=== PATIENT | female | born 1945 | race Caucasian/White ===

== ENCOUNTER → 2016-04-18 | Outpatient (CLI) | payer BC ==
[~2016-04-18] MED LIST: CITA40TA4 PO; FEXO1TAB49 PO; LEVO100T7 PO; MTR600X; ROSU5TAB PO
[2016-04-18 09:42] LABS: BASO % 0.6 %; BASO ABS # 0.05 K/uL (0-0.2); COMPLETE YES; EOS % 3.2 %; HEMATOCRIT 43.9 % (37-47); IG% 0.1 %; LYMPH % 26.2 %; LYMPH ABS # 2.12 K/uL (1.2-3.4); MEAN CELL VOLUME 90.3 fL (80-100); MEAN CORPUSCULAR HEMOGLOBIN 30.2 pg (25-34); MEAN CORPUSCULAR HGB CONC 33.5 g/dl (32-36); MEAN PLATELET VOLUME 10.6 fL (7.4-10.4); MONO % 6.6 %; NEUT % 63.3 %; PLATELET COUNT 310 K/uL (130-400); RED BLOOD COUNT 4.86 M/uL (4.2-5.4); WHITE BLOOD COUNT 8.08 K/uL (4.8-10.8)
[2016-04-18 10:01] LABS: ALT/SGPT 23 U/L (12-78); BLOOD UREA NITROGEN 16 mg/dl (7-18); CALCIUM 9.3 mg/dl (8.5-10.1); CARBON DIOXIDE 24 mmol/L (21-32); CHLORIDE 108 mmol/L (98-107); CHOLESTEROL 260 mg/dl (0-200); CREATININE 0.74 mg/dl (0.60-1.20); GLUCOSE 116 mg/dl (70-99); SODIUM 143 mmol/L (136-145); TRIGLYCERIDES 174 mg/dl (0-150); VERY LOW DENSITY LIPOPROT CALC 35 mg/dl
[2016-04-18 10:13] LABS: ALB/GLOB RATIO 1.3 (0.9-2); ALKALINE PHOSPHATASE 73 U/L (45-117); AST/SGOT 14 U/L (15-37); CHOLESTEROL/HDL RATIO 4.6; HDL CHOLESTEROL 57 mg/dl; LDL CHOLESTEROL CALCULATED 168 mg/dl
== END | disposition home or self-care (01) ==
LOC: C.LAB1850 08:39
PROVIDERS: ATTEND Internal Medicine Pulmonary Disease
DX: E78.5 Hyperlipidemia, unspecified (principal); E03.9 Hypothyroidism, unspecified; J30.81 Allergic rhinitis due to animal (cat) (dog) hair and dander; M54.5 Low back pain

== ENCOUNTER → 2016-09-12 | Outpatient (CLI) | payer BC ==
--- NOTE | 2016-09-12 14:55 | MAMMOGRAPHY REPORT ---
BILATERAL DIGITAL SCREENING MAMMOGRAM WITH CAD: 09/12/2016 CLINICAL HISTORY: Routine screening examination. TECHNIQUE: Bilateral CC and MLO views were obtained. Current study was also evaluated with a Comput er Aided Detection (CAD) system. COMPARISON: Comparison is made to exams dated: 09/09/2015 mammogram, 09/03/2014 mammogram, 09/02/2013 ma mmogram, 08/30/2012 mammogram, 08/30/2011 mammogram, and 08/26/2010 mammogram - [facility] BREAST COMPOSITION: There are scattered areas of fibroglandular density in both breasts. FINDINGS: There are stable groupings of benign-appearing microcalcifications throughout each breast. No new suspicious mass, architectural distortion or cluster of suspicious microcalcifications is see n. IMPRESSION: ACR BI-RADS CATEGORY 1: NEGATIVE There is no mammographic evidence of malignancy. A 1 year screening mammogram is recommended. The pa tient will receive written notification of the results. Approximately 10% of breast cancers are not detected with mammography. A negative mammographic report should not delay biopsy if a clinically suggestive mass is present. Shelli Richardson M.D. ay/:09/12/2016 11:43:49 Forestry Engineer: Ivette OAKES(Lachelle)(Lori), [facility] letter sent: Normal 1/2 BI-RADS Code: ACR BI-RADS Category 1: Negative
== END | disposition home or self-care (01) ==
LOC: C.MAMM 10:59
PROVIDERS: ATTEND Obstetrics & Gynecology
DX: Z12.31 Encounter for screening mammogram for malignant neoplasm of breast (principal)

== ENCOUNTER → 2017-02-20 | Outpatient (CLI) | payer BC ==
[2017-02-20 09:54] LABS: ALT/SGPT 20 U/L (12-78); BLOOD UREA NITROGEN 16 mg/dl (7-18); BUN/CREATININE RATIO 20.1 (10-20); CALCIUM 9.2 mg/dl (8.5-10.1); CARBON DIOXIDE 27 mmol/L (21-32); CHLORIDE 104 mmol/L (98-107); CHOLESTEROL 170 mg/dl (0-200); CREATININE 0.78 mg/dl (0.60-1.20); GLUCOSE 113 mg/dl (70-99); POTASSIUM 4.1 mmol/L (3.5-5.1); SODIUM 139 mmol/L (136-145); TRIGLYCERIDES 115 mg/dl (0-150); VERY LOW DENSITY LIPOPROT CALC 23 mg/dl
[2017-02-20 10:04] LABS: ALKALINE PHOSPHATASE 79 U/L (45-117); AST/SGOT 16 U/L (15-37); CHOLESTEROL/HDL RATIO 2.7; HDL CHOLESTEROL 63 mg/dl; LDL CHOLESTEROL CALCULATED 84 mg/dl
== END | disposition home or self-care (01) ==
LOC: C.LAB1850 08:37
PROVIDERS: ATTEND Internal Medicine Pulmonary Disease
DX: E78.5 Hyperlipidemia, unspecified (principal); E03.9 Hypothyroidism, unspecified; M54.30 Sciatica, unspecified side; F32.9 Major depressive disorder, single episode, unspecified

== ENCOUNTER 2022-04-05 10:33 | Observation (INO) ==
--- NOTE | 2022-02-15 12:10 | PAT Medication Instructions ---
Medication Instructions Date of Service February 15, 2022 Home Medications Medication Instructions Recorded citalopram 10 mg tablet 10 mg PO QPM #90 tabs 03/03/21 levothyroxine 100 mcg tablet 100 mcg PO QAM #90 tabs 03/03/21 (Levo-T) rosuvastatin 5 mg tablet 5 mg PO QPM #90 tabs 06/07/21 fexofenadine 180 mg tablet ([facility]) 180 mg PO DAILY PRN citalopram 10 mg tablet 10 mg PO QPM levothyroxine 100 mcg tablet (Levo-T) 100 mcg PO QAM rosuvastatin 5 mg tablet 5 mg PO QPM DO NOT take the morning of surgery fexofenadine 180 mg tablet ([facility]) 180 mg PO DAILY PRN Take morning of surgery With a small sip of water, OTHERWISE NOTHING TO EAT OR DRINK AFTER MIDNIGHT: levothyroxine 100 mcg tablet (Levo-T) 100 mcg PO QAM Take evening before surgery citalopram 10 mg tablet 10 mg PO QPM rosuvastatin 5 mg tablet 5 mg PO QPM Other Notes If you have any questions please call us at [phone] or [phone] or [phone] or [phone]
--- NOTE | 2022-02-21 14:56 | Anesthesiology Consultation ---
Date of Service February 21, 2022 Assessment & Plan (1) Encounter for pre-operative examination: Chart Review Chart Review: Acceptable Risk for Surgery (pending surgeon ordered PCP clearance ) and Patient seen in Pre Admission Testing - Awaiting surgeon ordered PCP clearance 03/02/22 - Due to age, patient is NOT a Same Day Joint candidate Per PAT appt on 02/21/22, patient denies any recent travel or large group activities. Pt is vaccinated for Covid. Will leave to surgeon's discretion if preop Covid testing needed. Educated on importance of using Covid precautions one week prior to surgery Teaching & Discussion Pre-Anesthesia Teaching/Discussion Notes: Instructed NPO after midnight before surgery,except medications with 15 cc of water. Medication instructions provided according to the PAT guidelines. History Surgery Operation Date: 04/05/22 09:20 Proposed Procedures p Left Total Knee Arthroplasty - Anders Gold DO Height/Weight Height: 5 ft 7 in Weight: 84.9 kg Allergies Allergy/AdvReac Type Severity Reaction Status Date / Time cat dander Allergy Mild Congested Verified 02/21/22 14:45 dog dander Allergy Mild Congested Verified 02/21/22 14:45 Medications Home Medications Medication Instructions Recorded Confirmed Last Taken fexofenadine 180 mg tablet 180 mg PO DAILY PRN allergy relief 10/04/18 02/10/22 10/21/18 08:00 ([facility]) citalopram 10 mg tablet 10 mg PO QPM #90 tabs 03/03/21 02/10/22 Unknown levothyroxine 100 mcg tablet 100 mcg PO QAM #90 tabs 03/03/21 02/10/22 Unknown (Levo-T) rosuvastatin 5 mg tablet 5 mg PO QPM #90 tabs 06/07/21 02/10/22 Unknown Past Medical History Medical History Arthritis Elevated cholesterol Hypothyroidism Situational depression Exercise / Class Metabolic Activity II 4-5 Yardwork/Stairs/Walk up hill (one flight of stiars - no chest pain or SOB ) Past Family History Family History Son Liver cancer Other No family history of adverse response to anesthesia Past Surgical History Surgical History H/O breast biopsy BENIGN History of arthroscopy of right knee Meniscus surgery History of cataract surgery (~2012) rt/left History of colonoscopy (~09/2018) History of tonsillectomy History of tooth extraction [place] teeth removed Past Anesthesia History No Hx of Anesthesia Complications and No Family Hx of Anesthesia Complications History of PONV No Hx of PONV and No Hx of Motion Sickness Social History Smoking Status: Former smoker tobacco type: cigarettes Do You Dip or Chew Tobacco: No Smoking End Date: 20 YEARS AGO Hx Alcohol Use: Yes Alcohol type: wine alcohol intake frequency: holidays/special occasions only Hx Substance Use: No substance use type: does not use Review of Systems Occ reflux - only with red wine Occ snoring- mild - no witnessed apnea - no hx of sleep study Patient denies chest pain, shortness of breath, dyspnea on exertion, cough, wheezing, palpitations. No hx of seizures, stroke, PA. No hx of blood clots or blood transfusions Physical Exam Vital Signs VITALS BP 125/66 P 62 TEMP 98.2 SP02 96% RESP 16 Constitutional no acute distress ENMT Mouth: + small oral opening; no TMJ clicking Thyromental Distance: > or= 3.5 Finger Breadths (3.5) Mallampati Class: III Missing molars Crowns to molars Neck + limited neck extension (mild) Respiratory normal respiratory effort; no respiratory distress Auscultation: lungs clear to auscultation bilaterally; no wheezes Cardiovascular Rate/Rhythm: regular rate and regular rhythm Heart Sounds: no murmur Vessels: no carotid bruit Musculoskeletal Spine: no pain with cervical ROM Extremities: extremities normal to inspection Psychiatric Orientation: alert Lab Results Anesthesia Preop Results Results Anesthesia Widget: WBC 9.03 K/ul (4.8-10.8) 02/21/22 Hgb 14.7 g/dl (12.0-16.0) 02/21/22 Hct 44.3 % (34.1-44.9) 02/21/22 Plt 278 K/uL (130-400) 02/21/22 Na 140 mmol/L (136-145) 02/21/22 K 4.5 mmol/L (3.5-5.1) 02/21/22 Cl 106 mmol/L (98-107) 02/21/22 CO2 28 mmol/L (21-32) 02/21/22 BUN 17 mg/dl (6-23) 02/21/22 Creat 0.73 mg/dl (0.6-1.2) 02/21/22 Glucose Level 92 mg/dl (70-99(Fasting)) 02/21/22 PT 10.6 Seconds (9.0-12.0) 02/21/22 PTT 24.2 Seconds (21.0-31.0) 02/21/22 INR 1.0 (0.9-1.1) 02/21/22 HA1c 5.6 % (4.5-5.6) 02/21/22 Urine Color Yellow 02/21/22 Urine Appearance Clear (Clear) 02/21/22 Urine pH 5.5 (4.5-7.5) 02/21/22 Urine Specific [place] 1.015 (1.000-1.030) 02/21/22 Urine Protein Negative (Negative) 02/21/22 Urine Glucose (UA) Negative (Negative) 02/21/22 Urine Ketones Negative (Negative) 02/21/22 Urine Blood Negative (Negative) 02/21/22 Urine Nitrite Negative (Negative) 02/21/22 Urine Bilirubin Negative (Negative) 02/21/22 Urine Urobilinogen Negative (Negative) 02/21/22 Urine Leukocyte Esterase Negative (Negative) 02/21/22 Blood Type A Positive 02/21/22 Antibody Screen NEGATIVE 02/21/22 Testing Electrocardiogram Date: 02/21/22 Findings: + SB @ (57bpm ) Otherwise normal EKG per cardio. Chest X-Ray Date: 02/21/22 FINDINGS: Lung volumes are normal. Lungs are clear. There is no pneumothorax or pleural effusion. Cardiac size is normal. There is a suspected hiatal hernia. There is no evidence for pulmonary edema. IMPRESSION: 1. No acute cardiopulmonary findings. 2. Suspected hiatal hernia. COVID-19 Risk Screen Screening Information COVID-19 Screen Date: 02/21/22 Exposure 21 Days Family/Household +COVID Last 21 Days: No Exposure 10 Days Any COVID Exposure Last 10 Days: No Symptoms Last 10 Days Experienced COVID Sx Last 10 Days: No + COVID 0-90 Days COVID + in Last 0-90 Days: No Risk Plan COVID Risk Plan: No Risk Identified Patient Education COVID Preop Screening Education Complete: Yes
--- NOTE | 2022-03-11 11:52 | History & Physical Report ---
Date of Service March 11, 2022 date of surgery: 04/05/22 Procedure: Left Total Knee Arthroplasty Surgeon: Anders Gold Assessment & Plan (1) Arthritis of knee, left: Plan: Risks and benefits of procedure discussed in detail today, patient would like to proceed with a left total knee replacement at [facility] as scheduled. will obtain medical clearance prior to surgery as well as obtain PATs at [facility]. Will place on ASA 81mg po bid x 1 month post op, f/u 2 weeks post op for routine post-operative care and x-ray, sooner if having any problems. will make arrangements for HHPT at the time of discharge. At this point in time, has failed conservative measures and would like to proceed with surgical intervention. The risks and benefits have been discussed including, but not limited to, risk of infection, nerve injury, stiffness, loss of motion, failure to improve, etc. Reasonable outcomes and options of treatment were discussed. An explanation of appropriate alternatives to the procedure that may be advantageous were discussed and their risks and benefits, as well as the risks and benefits of not proceeding with treatment. I offered to answer any additional inquiries concerning the treatment involved. All the patient's questions were answered. The patient is agreeable, understanding of the treatment plan and alternatives, and wishes to proceed with the treatment plan. History of Present Illness Chief Complaint: left knee pain Primary Care Provider: James Villarreal MD Estee is a 76-year-old female who presents for preop evaluation prior to a left total knee replacement. She has pain in his knee for many years now which is gradually worsened and is now affecting her daily activities including walking standing using stairs. She is tried oral anti-inflammatories as well as Tylenol without relief. She had previous cortisone injection as well as viscosupplementation as well. This point time is failed conservative measures and would like to proceed with a left total knee replacement Allergies Allergy/AdvReac Type Severity Reaction Status Date / Time cat dander Allergy Mild Congested Verified 03/02/22 12:55 dog dander Allergy Mild Congested Verified 03/02/22 12:55 Home Medications Medication Instructions Recorded Confirmed Type fexofenadine 180 mg tablet 180 mg PO DAILY PRN allergy relief 10/04/18 03/02/22 History ([facility]) citalopram 10 mg tablet 10 mg PO QPM #90 tabs 12/08/21 12/07/22 Rx rosuvastatin 5 mg tablet 5 mg PO QPM #90 tabs 06/07/21 03/02/22 Rx levothyroxine 100 mcg tablet See Rx Instructions .Route 02/28/22 03/02/22 Rx .COMPLEX #90 tabs Past Med/Surg History Medical History Arthritis Elevated cholesterol Hyperglycemia Per PCP records Hypothyroidism Situational depression Surgical History H/O breast biopsy BENIGN History of arthroscopy of right knee Meniscus surgery History of cataract surgery (~2012) rt/left History of colonoscopy (~09/2018) History of tonsillectomy History of tooth extraction [place] teeth removed Family History Son Liver cancer Other No family history of adverse response to anesthesia Social History Smoking Status: Former smoker Second Hand Exposure: Yes (SOME EXPOSURE IN PAST); Hx Alcohol Use: Yes Alcohol type: wine Hx Substance Use: No Preferred Language: [place] Communication Ability: Effective Validation Scientist Required: No Beliefs That Will Affect Care: None marital status: Current Living Situation: Spouse current occupational status: retired Feels Safe at Home: Yes Assistive Devices: Glasses Review of Systems Review of Systems: All systems reviewed & are unremarkable except as noted in HPI & below Constitutional: no fever, no chills and no sweats Respiratory: no cough and no dyspnea Cardiovascular: no chest pain, no dyspnea and no orthopnea Gastrointestinal: no abdominal pain, no nausea and no vomiting Musculoskeletal: as per Subjective / HPI Physical Exam Physical Exam: HT: 5ft 7in WT: 84.8kg Constitutional: WD/WN, vitals as above no acute distress Respiratory: normal respiratory effort, lungs clear to auscultation no respiratory distress, no labored breathing and does not use accessory muscles Cardiovascular: RRR, no murmur, no edema Gastrointestinal (Abdomen): normal bowel sounds, soft, nontender, no hepatosplenomegaly Musculoskeletal: Knee: + knee abnormal to inspection (Left knee: ), + effusion (+1 effusion), + limited ROM of knee (ROM 0/3/110), + knee ROM with crepitation, + joint line tenderness (medial joint line) and + Edgar's sign positive; no deformity, no skin erythema, no ecchymosis, no valgus laxity, no varus laxity, anterior drawer test negative, Jeremi's sign negative and pivot shift test negative Results & Data Results & Data ([facility]) Diagnostic Findings Left Knee X-ray: left knee series confirm degenerative changes to the left knee, greatest medial compartments and patellofemoral joint, showing joint space narrowing, osteophyte formation and subchondral sclerosis. no acute bony pathology noted.
[~2022-04-05 10:33] MED LIST changes: +ACETAMINOPHEN 500 MG TAB PO SCH; +BUPIVACAINE 0.25% 30 ML VIAL ONE; +BUPIVACAINE 0.5 % 5 MG/1 ML PF 10ML VIAL ONE; -CITA40TA4 PO; +CeleBREX 200 MG CAP PO SCH; +DEXAMETHASONE SOD INJ 4 MG/ML VIAL ONE; +EPINEPHrine INJ 1 MG/ML AMP ONE; +FAMOTIDINE 20 MG TAB PO SCH; -FEXO1TAB49 PO; +GABAPENTIN 300 MG CAP PO SCH; -LEVO100T7 PO; +LR 500ML BOLUS, THEN 15ML/HR IV SCH; +METOCLOPRAMIDE HCL 10 MG TABLET PO SCH; -MTR600X; +ROPIVACAINE 0.5% HCL/PF 150 MG, BUPIVACAINE 0.75% MPF 20 ML, EPINEPHrine 30MG/30ML (OR ... INSTIL SCH; -ROSU5TAB PO; +TRANEXAMIC ACID 1,000 MG **IV Intra-op IV SCH; +TRANEXAMIC ACID 1,000 MG **IV Pre-op IV SCH; +ceFAZolin 2000MG 2,000 MG/15 ML SYR IV SCH; +dexAMETHasone 4 MG TAB PO SCH
--- NOTE | 2022-04-05 11:19 | History & Physical Bridge Note ---
Date of Service April 05, 2022 History & Physical Bridge Note I have examined the patient, reviewed the History & Physical and in the interval since the performance of the History & Physical I have noted the following changes of clinical significance: no changes noted
[2022-04-05] MEDS ORDERED: LIDOCAINE 2% 20 MG/ML 5 ML SYR IV ONE (12:14)
[2022-04-05] MEDS ORDERED: PROPOFOL IV EMULSION 10 MG/ML 20 ML VIAL IV ONE (12:14)
[2022-04-05] MEDS ORDERED: fentaNYL citrate 100 MCG/2 ML VIAL ONE (12:14)
[2022-04-05] MEDS ORDERED: ONDANSETRON INJ 2 MG/ML 2 ML VIAL ONE (12:14)
[2022-04-05] MEDS ORDERED: MIDAZOLAM HCL 1 MG/ML 2ML VIAL ONE ×2 (12:15→13:28)
[2022-04-05] MEDS ORDERED: ORTHO JOINT ANESTHETIC ONE (13:14)
--- NOTE | 2022-04-05 14:40 | Operative Report ---
Post Operative Report Pre & Post Diagnosis Operation Date: 04/05/22 13:00 Pre-Op Diagnosis: Tricompartment Osteoarthritis of the Left Knee Post-Op Diagnosis: Tricompartment Osteoarthritis of the Left Knee I identified the patient and participated in the time-out.: Yes Procedure Operation Date: 04/05/22 13:00 Actual Procedures p Left Total Knee Arthroplasty(Left) utilizing Laureano [employer] Nephew journey 2 patient matched total knee arthroplasty size femur 5 tibia for polyeleven patella 29- Anders Gold DO Surgeon Anders Gold DO French Professor Edd OLMOS Estimated Blood Loss 5 Findings Consistent with Post-Op Diagnosis Patient resents severe end-stage tricompartmental DJD no response to conservative management patient has eburnated [id number] marginal osteophyte subchondral cystic changes. Specimens Bone and cartilage Drains Medium bore Hemovac Anesthesia Type MAC Spinal Regional Complications none Disposition Accompanied Patient To Recovery: No Disposition: Recovery Room Indications Patient Dionte with severe end-stage DJD failed attempted conservative management clinic physical therapy anti-inflammatories relative rest activity modification corticosteroid injection viscosupplementation Description of Procedure After proper prepping and draping of the left lower extremity anterior midline incision was made over the region of the extensor extensor mechanism after meticulous hemostasis was obtained and maintained in subcutaneous tissues a medial parapatellar incision was made The patella was subluxed lateralward the medial lateral gutter were cleaned from any hypertrophic synovitis and scar tissue of the distal femoral block was placed and the distal femoral osteotomy cut was made subsequently the chamfers anterior and posterior osteotomy cuts were made utilizing the 4-in-1 block the tibia was subsequently subluxed anteriorward medial and ateral meniscal remnants were excised in their entirety remnants of the anterior and posterior cruciate ligaments were excised in their entirety excellent exposure of the proximal tibia was obtained the tibial oste otomy guide was placed on the proximal tibial osteotomy cut was made once again the knee was irrigated with copious amounts of sterile saline solution the patella was subsequently everted lateralward thickened scar tissue around the patella was removed the patella was subsequently cut utilizing a freehand technique and was drilled prepared for final preparation and placement of patella socially flexion-extension gaps were checked and the equal and symmetric trials were placed to the appropriate femoral and tibial trials with poly-spacer being placed for equal flexion and extension gaps and full range of motion including extension to 0 and flexion to 140 the trial components after having been taken to recovery range of motion was subsequently removed meticulous hemostasis was obtained and maintained subsequently a knee block injection of joint cocktail including ropivacaine 0.5% 150 mg. Bupivacaine 0.5% epinephrine 1-200,030 mL's toradol 30 mg dexamethasone 4 mg ketamine 10 mg clonidine 100 micrograms normal saline solution 30 mg was infiltrated into the soft tissues of the posterior knee medial lateral gutters and periosteal synovium special attention was paid to protect neurovascular structures at all times subsequently trial components having been removed the knee was irrigated with sterile saline solution. debris was removed the proximal tibia was subsequently prepared and was made ready for the placement of the tibial component tibial component was also cemented and tamped into position the femoral component was subsequently placed and cemented in the position the patellar component was subsequently cemented in position because hemostasis once again obtained and maintained wound having been thoroughly irrigated with debridement and debridement lavage was performed as well as a medial parapatellar incision closed with #1 Vicryl in interrupted fashion subcutaneous was closed with #2 Vicryl skin was closed with skin clips. PA-C was necessary for prepping and drapping as well as wound closure of deep fascia Sub cutaneous tissue and skin and was necessary for the case. A sterile compressive dressing was placed patient was taken to recovery in stable condition of report dictated by Asif I attest to the content of the Intraoperative Record and any orders documented therein. Any exceptions are noted below.Due to the complex nature of the proc edure, the entire surgery was performed with the operational assistance of Edd OLMOS. The drilling assistant, under direct supervision, was involved in the actual performance of all aspects of the surgical procedure including hemostasis, tissue retraction and incision, instrument management, patient positioning, and wound closure. I attest to the content of the Intraoperative Record and any orders documented therein. Any exceptions are noted below.
--- NOTE | 2022-04-05 15:49 | Anesthesiology Progress Note ---
Date of Service April 05, 2022 Anesthesia Post Procedure Vital Signs Vital Signs: Temp Pulse Resp BP Pulse Ox O2 Del Method O2 Flow Rate 04/05/22 15:45 68 17 94/46 L 94 Oxymask 2 04/05/22 15:35 71 17 105/48 L 94 Oxymask 5 04/05/22 15:25 36.9 C 77 16 97/50 L 95 Oxymask 5 04/05/22 10:56 67 20 147/75 H 95 Room Air Pain Intensity Right Knee: Pain Intensity: 0 Transfer of Care Handoff Completed per policy Notes Mental Status: alert / awake / arousable Patient Amnestic to Procedure: Yes Nausea / Vomiting: adequately controlled Pain: adequately controlled Airway Patency, RR, SpO2: stable & adequate BP & HR: stable & adequate Hydration State: stable & adequate Anesthetic Complications: no major complications apparent
--- NOTE | 2022-04-05 15:51 | XRay Report ---
TWO VIEWS LEFT KNEE CLINICAL HISTORY: Postoperative examination. FINDINGS: AP and crosstable lateral portable views of the left knee are obtained. A left knee arthrop lasty is in near anatomic alignment. There has been undersurface remodeling of the patella. No acute fracture is seen. There are expected postoperative changes around the knee including a surgical drain , soft tissue edema, and subcutaneous gas. IMPRESSION: Expected postoperative changes status post left knee arthroplasty. No acute fracture is s een. ACT 112: Negative or not required by law. Electronically signed by: Isrrael Arrington M.D. 04/05/2022 3:49 PM
[2022-04-05] MEDS ORDERED: FEXOFENADINE HCL 180 MG TAB PO PRN (16:27)
[2022-04-05] MEDS ORDERED: NALOXONE HCL 0.4 MG/1 ML VIAL/CARP IV PRN (16:27)
[2022-04-05] MEDS ORDERED: ONDANSETRON INJ 2 MG/ML 2 ML VIAL IV PRN (16:27)
[2022-04-05] MEDS ORDERED: HYDROmorphone INJ 1 MG/ML SYRINGE IV PRN (16:27)
[2022-04-05] MEDS ORDERED: bisacodyL 10 MG SUPP PR PRN (16:27)
[2022-04-05] MEDS ORDERED: METOCLOPRAMIDE HCL INJ 5 MG/ML 2 ML VIAL IV PRN (16:27)
[2022-04-05] MEDS ORDERED: MAGNESIUM HYDROXIDE SUSP 30 ML UDC PO PRN (16:27)
[2022-04-05] MEDS ORDERED: oxyCODONE HCL IR 5 MG TAB (IMMEDIATE RELEASE) PO PRN (16:27)
[2022-04-05] MEDS ORDERED: diphenhydrAMINE Capsule 25 MG CAP PO PRN (16:27)
--- NOTE | 2022-04-05 16:47 | Hospitalist Consultation ---
Date of Consultation April 05, 2022 Assessment & Plan (1) Status post total knee replacement, left: Estee Perez is a 76-year-old female with well-controlled hypothyroidism, well- controlled hyperlipidemia, and history of hyperglycemia with recent A1c 5.6% and last read-out fasting glucose of 92 (normal). She is doing clinically well and hemodynamically stable postop. 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 Can continue chronic depression, hyperlipidemia, and allergic rhinitis medications. Medicine will sign off, please notify us if any acute concerns or abnormalities develop. Left TKA 4 osteoarthritis Uncomplicated, 5 cc of blood loss Pain control, activity recommendations, and DVT prophylaxis per primary team Neurovascularly intact, no acute concerns on hospitalist evaluationxx - Mild post-op hypotension 96/60. HR 72, asymptomatic. Pt reports BP runs low normal at baseline. radial and PT pulses intact. +500cc LR bolus, then defer IVFM if tolerating good PO Hypothyroidism Continue Synthroid 100 mcg daily Clinically euthyroid Hyperlipidemia Continue rosuvastatin 5 mg nightly Hyperglycemia Preop A1c 5.6%, well controlled Depression Continue citalopram 10 mg daily Allergic rhinitis May use [place] 180 mg p.o. daily as needed (2) Hyperglycemia: (3) Hyperlipemia: (4) Depression: (5) Hypothyroidism: History of Present Illness Attending Physician: Anders Gold, History of Present Illness Estee Perez is a 76yo F with a PMHx of hyperlipidemia, hypothyroidism, allergies, depresssion, imparied fasting glucose, and OA who presented to [facility] for scheduled LEFT knee total arthroplasty on 04/05/22. We have been consulted for post-operative medical management. Surgery was uncomplicated with 5 cc of blood loss per report. Preoperative labs: No leukocytosis, hemoglobin 14.7 Sodium and potassium normal, creatinine with normal baseline and preop creatinine 0.73, COVID testing was negative. EKG sinus bradycardia with QTC 393, no change from prior. Patient is with normal chronotropic response. Estee is seen at the bedside postop. She reports that she feels well, and has sensation in both her feet. She did not note any numbness in her left leg upon waking and surgery. She is in no pain. Blood pressure is slightly low postoperatively, she reports that her blood pressure does run slightly low normally "but if you talk to me about needles it will go right up ". Doing well without complaints/concerns. Specifically denies fever, chills, cough, sore throat, lightheadedness, dizziness, chest pain, chest pressure. She has well treated hypothyroidism at baseline and she took her Synthroid this morning. Does take 5 mg of rosuvastatin which she is hoping to get off with more exercise now that her knee is fixed. Some concerns for blood sugar in the past, last fasting BSG was normal and her previous A1c was 5.6%. She has never been on any antilipemics. Has allergies to cat and dog dander, since her dog passed she has not needed allergy medications and does not feel she needs any allergy medication today. Medical History: Reviewed Medications: Reviewed Surgical History: Reviewed Allergies: Reviewed Social History: Social etoh and tobacco use, former smoker. Tobacco cessation/abstinance counseling provided Code Status: Full Allergies Allergy/AdvReac Type Severity Reaction Status Date / Time cat dander Allergy Mild Congested Verified 04/05/22 11:02 dog dander Allergy Mild Congested Verified 04/05/22 11:02 No Known Drug Allergies Allergy Unknown Verified 04/05/22 11:02 Home Medications Medication Instructions Recorded Confirmed Type fexofenadine 180 mg tablet 180 mg PO DAILY PRN allergy relief 10/04/18 04/05/22 History ([place]eva Allergy) rosuvastatin 5 mg tablet 5 mg PO QPM #90 tabs 06/07/21 04/05/22 Rx levothyroxine 100 mcg tablet See Rx Instructions .Route 02/28/22 04/05/22 Rx .COMPLEX #90 tabs citalopram 10 mg tablet See Rx Instructions .Route 03/18/22 04/05/22 Rx .COMPLEX #90 tabs Patient History Medical History Arthritis Elevated cholesterol Hyperglycemia Per PCP records Hypothyroidism Situational depression Surgical History H/O breast biopsy BENIGN History of arthroscopy of right knee Meniscus surgery History of cataract surgery (~2012) rt/left History of colonoscopy (~09/2018) History of tonsillectomy History of tooth extraction [place] teeth removed Family History Son Liver cancer Other No family history of adverse response to anesthesia Social History Smoking Status: Former smoker Smoking End Date: 20 YEARS AGO; Second Hand Exposure: Yes (as a child); Do You Dip or Chew Tobacco: No; Hx Alcohol Use: Yes Alcohol type: wine Hx Substance Use: No Preferred Language: [place] Communication Ability: Effective Change Control Specialist Required: No Beliefs That Will Affect Care: None marital status: Current Living Situation: Spouse current occupational status: retired Feels Safe at Home: Yes Safety Concerns: Feels Safe At This Time Assistive Devices: None Assistive Devices Comment: GLASSES FOR DISTANCE ONLY Review of Systems Review of Systems: All systems reviewed & are unremarkable except as noted in Subjective Physical Exam Physical Exam: General: A&Ox3. NAD. Cooperative. HEENT: Atraumatic, normocephalic. Vision/hearing intact. PERLAA. Pulm: CTAB A&P. -wheezes, -rales, -rhonchi. Symmetrical chest rise. No increased work of breathing. No respiratory distress. Cardiac: RRR, -mrg. Radial pulses intact and symmetrical. Abdominal: Nontender, nondistended, soft. BS present. Ext: Wiggles toes bilaterally. Sensation to soft touch intact in feet bilaterally without asymmetry. PT pulses intact bilaterally. L knee postop iceback/dressing inplace. Drain in place with sanginous-seriosanginous material. Results & Data Results & Data ([facility]) Vital Signs (Past 12 Hours) Vital Signs Temp Pulse Resp BP Pulse Ox O2 Del Method O2 Flow Rate 04/05/22 16:27 36.7 C 82 14 103/62 92 Room Air 04/05/22 15:55 36.6 C 72 18 102/52 L 92 Room Air 04/05/22 15:45 68 17 94/46 L 94 Oxymask 2 04/05/22 15:35 71 17 105/48 L 94 Oxymask 5 04/05/22 15:25 36.9 C 77 16 97/50 L 95 Oxymask 5 04/05/22 10:56 67 20 147/75 H 95 Room Air PG Care Time/CCT Total # of Minutes Spent Total Time Spent with Patient: Total time spent is greater than 50% in coordination of care (as documented) at patient's floor/unit and/or counseling patient: Coding Level of Care Code INP/OBS CONSULT LVL 3, 45 MIN Diagnoses Status post total knee replacement, left Z96.652 Hyperglycemia R73.9 Hyperlipemia E78.5 Depression F32.9 Hypothyroidism E03.9
[2022-04-05] MEDS ORDERED: LACTATED RINGER'S 500 ML IV ONE (16:59)
[2022-04-05] MEDS: SODIUM CHLORIDE 0.9% 1000ML 1,000 ML IV SCH (17:22)
[2022-04-05] MEDS: LEVOTHYROXINE SODIUM 100 MCG TABLET PO SCH (17:55)
[2022-04-05] MEDS: KETOROLAC TROMETHAMINE 15 MG/ML VIAL IV SCH ×2 (17:56→23:09)
[2022-04-05] MEDS ORDERED: ROSUVASTATIN CALCIUM 5 MG TAB PO SCH (21:00)
[2022-04-05] MEDS ORDERED: CeleBREX 200 MG CAP PO SCH (21:00)
[2022-04-05] MEDS ORDERED: SENNA 8.6 MG TAB PO SCH (21:00)
[2022-04-05] MEDS: DOCUSATE SODIUM 100 MG CAP PO SCH (21:06)
[2022-04-05] MEDS: ASPIRIN 81 MG ECTAB PO SCH (21:06)
[2022-04-05] MEDS: ACETAMINOPHEN 500 MG TAB PO SCH (21:06)
[2022-04-05] MEDS: ceFAZolin 2000MG 2,000 MG/15 ML SYR IV SCH (21:11)
[2022-04-06] MEDS: SODIUM CHLORIDE 0.9% 1000ML 1,000 ML IV SCH (03:17)
[2022-04-06] MEDS: ceFAZolin 2000MG 2,000 MG/15 ML SYR IV SCH (03:33)
[2022-04-06] MEDS: KETOROLAC TROMETHAMINE 15 MG/ML VIAL IV SCH ×2 (05:36→13:15)
[2022-04-06] MEDS: ACETAMINOPHEN 500 MG TAB PO SCH (05:36)
[2022-04-06 07:28] LABS: Hematocrit (blood only) 39.5 % (34.1-44.9); Hemoglobin 13.2 g/dl (12.0-16.0); Mean Corpuscular Hemoglobin 29.8 pg (25.0-34.0); Mean Corpuscular Hgb Conc 33.4 g/dL (32.0-36.0); Mean Corpuscular Volume 89.2 fL (80.0-100.0); Mean Platelet Volume 10.7 fL (9.4-12.3); Platelet Count 263 K/uL (130-400); RDW Coefficient of Variation 13.5 % (11.5-14.5); RDW Standard Deviation 44.1 fL (36.4-46.3); Red Blood Count 4.43 M/uL (3.93-5.22)
[2022-04-06 08:04] LABS: Calcium 8.8 mg/dl (8.5-10.1); Creatinine Clr Calc Pharmacy 72.5 ml/min; Est GFR (African American) 89.6 ml/min; Est GFR (Non-African American) 77.3 ml/min
--- NOTE | 2022-04-06 08:22 | Orthopedic Progress Note ---
Date of Service April 06, 2022 Assessment & Plan (1) Status post total knee replacement, left: Plan: Postop day #1 left total knee arthroplasty -PT/OT -Pain management as written -AM labs: Hemoglobin is 13.2 from 14.7 preop. Mild leukocytosis likely reactive. Patient is asymptomatic. -DVT prophylaxis: SCDs, teds, aspirin 81 mg twice daily -Discharge planning: Plan on discharge home with home health PT. Patient did have some nausea and vomited earlier this morning however this is now resolved. Her blood pressure was running low earlier this morning but is 111/54 at 0746. She states she normally runs low. Plan on discharge home possibly later today. We will recheck after therapy. Admission and Anticipated Discharge Date Admission Date: April 05, 2022 Subjective Patient is seen sitting in the bedside chair. She is doing well this morning. Pain is well controlled. No current complaints. Denies chest pain, shortness o f breath, headache/dizziness, nausea/vomiting/diarrhea. Review of Systems Review of Systems: All systems reviewed & are unremarkable except as noted in Subjective Physical Exam Physical Exam: Left knee: Dressing is clean, dry, intact. Toes are mobile with good dorsiflexion. No calf tenderness. Distally neurovascular status and sensation grossly intact. Able to do a straight leg raise. Results & Data ([facility]) Vital Signs (Past 12 Hours) Vital Signs Temp Pulse Pulse Resp BP BP Pulse Ox 04/06/22 07:46 111/54 L 04/06/22 07:26 36.6 C 63 16 94/56 L 99/62 L 93 04/06/22 03:17 36.8 C 66 16 114/59 L 95 04/05/22 22:11 36.5 C 60 16 107/64 96 O2 Del Method 04/06/22 07:46 04/06/22 07:26 Room Air 04/06/22 03:17 Room Air 04/05/22 22:11 Room Air
[2022-04-06] MEDS: DOCUSATE SODIUM 100 MG CAP PO SCH (08:24)
[2022-04-06] MEDS: LEVOTHYROXINE SODIUM 100 MCG TABLET PO SCH (08:24)
[2022-04-06] MEDS: ASPIRIN 81 MG ECTAB PO SCH (08:25)
[2022-04-06] MEDS ORDERED: MULTIVITAMIN TAB PO SCH (09:00)
--- NOTE | 2022-04-07 13:32 | Discharge Summary ---
Date of Service April 07, 2022 Admission HPI Per Admitting Provider Ilir is a 76-year-old female who presents for preop evaluation prior to a left total knee replacement. She has pain in his knee for many years now which is gradually worsened and is now affecting her daily activities including walking standing using stairs. She is tried oral anti-inflammatories as well as Tylenol without relief. She had previous cortisone injection as well as viscosupplementation as well. This point time is failed conservative measures and would like to proceed with a left total knee replacement Admission Exam Per Admitting Provider Physical Exam: HT: 5ft 7in WT: 84.8kg Constitutional: WD/WN, vitals as above no acute distress Respiratory: normal respiratory effort, lungs clear to auscultation no respiratory distress, no labored breathing and does not use accessory muscles Cardiovascular: RRR, no murmur, no edema Gastrointestinal (Abdomen): normal bowel sounds, soft, nontender, no hepatosplenomegaly Musculoskeletal: Knee: + knee abnormal to inspection (Left knee: ), + effusion (+1 effusion), + limited ROM of knee (ROM 0/3/110), + knee ROM with crepitation, + joint line tenderness (medial joint line) and + Edgar's sign positive; no deformity, no skin erythema, no ecchymosis, no valgus laxity, no varus laxity, anterior drawer test negative, Jeremi's sign negative and pivot shift test negative Principal Diagnosis Left Knee Osteoarthritis Discharge Data Allergies Allergy/AdvReac Type Severity Reaction Status Date / Time cat dander Allergy Mild Congested Verified 04/05/22 11:02 dog dander Allergy Mild Congested Verified 04/05/22 11:02 No Known Drug Allergies Allergy Unknown Verified 04/05/22 11:02 Consultations 03/31/22 14:22 Consult Hospitalist Routine Procedures Performed Operation Date: 04/05/22 13:00 Actual Procedures p Left Total Knee Arthroplasty(Left) - Anders Gold DO Ordered Studies 04/05/22 05:00 US - OR guided needle placemen Routine Hospital Course (1) Arthritis of knee, left: Patient:ILIR BAEZA Admit Date:04/05/22 MR#:[id number] Att Phy:Anders Gold,D.O. Acct ID:[id number] Maryjane Phy:James Villarreal MD Date:1945 [facility] Phy: Age:76 Location:3N Sex:F Room/Bed:N377-2 cc: ~ *NOTICE TO RECEIVING CONSTITUTION PARTY/AGENCY This information is strictly Confidential and protected under [place] law. [place] law prohibits you from making any further disclosure of this information unless further disclosure is expressly permitted by the written consent of the person to whom it pertains or is authorized by law. A general authorization for the release of medical or other information is not sufficient for this purpose. Hospital accepts no responsibility if the information is made available to any other person, INCLUDING THE PATIENT. Date of Service April 06, 2022 Assessment & Plan (1) Status post total knee replacement, left: Plan: Postop day #1 left total knee arthroplasty -PT/OT -Pain management as written -AM labs: Hemoglobin is 13.2 from 14.7 preop. Mild leukocytosis likely reactive. Patient is asymptomatic. -DVT prophylaxis: SCDs, teds, aspirin 81 mg twice daily -Discharge planning: Plan on discharge home with home health PT. Patient did have some nausea and vomited earlier this morning however this is now resolved. Her blood pressure was running low earlier this morning but is 111/54 at 0746. She states she normally runs low. Plan on discharge home possibly later today. We will recheck after therapy. Admission and Anticipated Discharge Date Admission Date: April 05, 2022 Subjective Patient is seen sitting in the bedside chair. She is doing well this morning. Pain is well controlled. No current complaints. Denies chest pain, shortness of breath, headache/dizziness, nausea/vomiting/diarrhea. Review of Systems Review of Systems: All systems reviewed & are unremarkable except as noted in Subjective Physical Exam Physical Exam: Left knee: Dressing is clean, dry, intact. Toes are mobile with good dorsiflexion. No calf tenderness. Distally neurovascular status and sensation grossly intact. Able to do a straight leg raise. Results & Data ([facility]) Vital Signs (Past 12 Hours) Vital Signs Temp Pulse Pulse Resp BP BP Pulse Ox 04/06/22 07:46 111/54 L 04/06/22 07:26 36.6 C 63 16 94/56 L 99/62 L 93 04/06/22 03:17 36.8 C 66 16 114/59 L 95 04/05/22 22:11 36.5 C 60 16 107/64 96 O2 Del Method 04/06/22 07:46 04/06/22 07:26 Room Air 04/06/22 03:17 Room Air 04/05/22 22:11 Room Air Signed By: <Electronically signed by James Cruz PA-C> 04/06/22 0824 <Electronically signed by Neil Ruffin MD> 04/06/22 1541 Total Time Total Time Spent Total Time Spent (In Minutes): 5 Discharge Plan Discharge Items Patient Disposition: Home - Home Health Services Reason For Visit: Tricompartment Osteoarthritis of the Left Knee Discharge Diagnosis: Left knee osteoarthritis Activity: Per Instructions section Non-emergency contact: Surgeon Call non-emergency contact if: you have any medication questions, your pain is not controlled, your pain is concerning for you, you have a fever, your temperature is above 101, your wound has increased redness and your wound has increased drainage Follow-up/Referrals: James Villarreal MD [Primary Care Provider] - Diet: Regular Addtl Attending Provider Instructions: ACTIVITY RECOMMENDATIONS: SELF CARE INSTRUCTIONS AFTER TOTAL KNEE REPLACEMENT A. You may need to continue a physical therapy program after discharge from the hospital. There are several options available to you. Your doctor will assist you in selecting the best one for you. 1. An out-patient facility 2 to 3 times a week for therapy or home therapy. 2. Continue working on all exercises taught to you in the hospital. Your goals should be to increase bending of your knee to 90 degrees and beyond and to fully straighten your knee. B. You may progress at your own pace from walking with a walker or crutches to a cane; then to no assistive devices. C. Make walking a part of your daily routine. Be up as much as comfortable with rest periods throughout the day. Rest with leg elevation is very important. Use the ice wrap frequently for the first 3-4 weeks. D. There are no restrictions on activities. You may ride in a car, shop, participate in first mate and all social activities. E. Wear the long elastic stockings (KAYE hose) 20 hours a day for 2 weeks after surgery. They can be removed several times a day for laundering and for a bath. F. You may shower, no tub baths until cleared by your doctor. SPECIAL CARE INSTRUCTIONS: VERY IMPORTANT TO READ AND REVIEW A. There are a few signs you need to watch for after you are home. Call [facility] if you notice any of the followin. Increased severe knee pain. Some pain is expected especially when you exercise. 2. Increased swelling in your leg or knee; pain or swelling of the calf muscle in either lower leg. 3. Any fluid drainage from the incision. 4. Shortness of breath or chest pain. B. Please call [facility] at if you have any concerns or questions about your operation or recovery. The doctor or his nurse will return your call promptly. C. You must take antibiotics before dental work, bladder, bowel or other surgery. Your doctor will provide you with a permanent care to carry describing this precaution. IMPORTANT: * REMEMBER TO TAKE ASPIRIN, 81 MG, TWICE DAILY FOR 4 WEEKS UNLESS OTHERWISE DIRECTED. THIS IS YOUR BLOOD THINNER. * HIGH RISK PATIENTS MAY BE PRESCRIBED A STRONGER BLOOD THINNER. THIS WILL BE PROVIDED AT DISCHARGE. * CALL IF INCREASED PAIN, REDNESS, DRAINAGE OR FEVER GREATER THAT 101. * WEAR KAYE HOSE 20 HOURS PER DAY FOR 2 WEEKS. This is a large suction dressing covering your incision. This will help pull any excess drainage from the wound and allow your incision to heal properly. You may shower with this if you can keep the unit outside of the shower. If any bleeding or leakage is noted please call your doctor's office. This will remain on your incision for 7 days and then should be removed. This can be done yourself or by the home nursing staff if applicable. The entire unit is disposable once removed. Once removed, keep incision clean and dry. If redness or drainage is noted, please call your surgeon. IF INCISION IS LEAKING THROUGH DRESSING, CALL THE OFFICE . FOLLOW UP VISIT: If appointment is not already scheduled: Please call [facility] to make a follow-up appointment for 2 weeks after your surgery at . Stand-Alone Forms: [employer], Smoking Cessation Medications and DC Order Prescriptions: New celecoxib [Celebrex] 200 mg Capsule 200 mg PO BID Qty: 60 0RF aspirin 81 mg Tablet,Delayed Release (Dr/Ec) 81 mg PO BID Qty: 60 0RF acetaminophen [Tylenol Extra Strength] 500 mg Tablet 1,000 mg PO Q8 Qty: 60 0RF oxycodone 5 mg Tablet 5 - 10 mg PO .Q4h-6h MDD 6 PRN (Reason: pain) Qty: 30 0RF Rx Instructions: Ongoing therapy, Dr. Gold supervising cefadroxil 500 mg capsule 500 mg PO BID Qty: 28 0RF Continued rosuvastatin 5 mg tablet 5 mg PO QPM Qty: 90 3RF levothyroxine 100 mcg tablet See Rx Instructions .ROUTE .COMPLEX Qty: 90 3RF Dose Instruction: TAKE 1 TABLET BY MOUTH EVERY MORNING Rx Instructions: TAKE 1 TABLET BY MOUTH EVERY MORNING citalopram 10 mg tablet See Rx Instructions .ROUTE .COMPLEX Qty: 90 3RF Dose Instruction: TAKE 1 TABLET BY MOUTH EVERY NIGHT Rx Instructions: TAKE 1 TABLET BY MOUTH EVERY NIGHT fexofenadine [[place] Allergy] 180 mg Tablet 180 mg PO DAILY PRN (Reason: allergy relief) Discharge Orders: Discharge Order (Routine); Ordered 04/06/22 Ordered By: James Cruz Admission Data Admit Date/Time: 04/05/22 14:25 Attending Provider: Anders Gold Admit Provider: Anders Gold Primary Care Provider: James Villarreal. Other Providers: Immanuel Miguel ; Luz,Home Health Other Interventions: Discharge Summary Assessment (RN) Last Done: 04/06/22 12:48
== END 2022-04-06 14:03 | disposition home health service (06) ==
LOC: 3N 10:33 → ASU 10:33
DX: M17.12 Unilateral primary osteoarthritis, left knee; E78.5 Hyperlipidemia, unspecified; Z79.899 Other long term (current) drug therapy; R73.9 Hyperglycemia, unspecified; Z87.891 Personal history of nicotine dependence; E03.9 Hypothyroidism, unspecified